=== PATIENT | female | born 1975 | race Asian ===

== ENCOUNTER 2025-04-14 18:20 | Emergency (ER) | payer MEDICAID, OTHER, SELFPAY ==
[2025-04-14 19:06] VITALS: BP 137/78; PULSE 67; RESP 20; TEMP 36.6; O2SAT 100; BMI 29.3
--- NOTE | 2025-04-14 19:10 | ED.GENADULT ---
HPI - General Adult General Chief complaint: Skin/Abscess/Foreign Body Stated complaint: abscess with cellulitis (sent by urgent care) Time Seen by Provider: 04/14/25 22:25 Related Data Previous Rx's ?Medication ?Instructions ?Recorded cephalexin 500 mg capsule 500 mg PO BID #19 caps 04/14/25 doxycycline hyclate 100 mg tablet 100 mg PO BID #19 tabs 04/14/25 ketorolac 10 mg tablet 10 mg PO Q8H PRN pain #10 tabs 04/14/25 oxycodone 5 mg tablet 5 mg PO BID PRN pain #5 tabs 04/14/25 oxycodone 5 mg tablet 5 mg PO BID PRN pain #5 tabs 04/14/25 Allergies Allergy/AdvReac Type Severity Reaction Status Date / Time No Known Allergies Allergy Verified 04/14/25 19:08 [facility] Social History Social History Alcohol intake: current Alcohol intake frequency: holidays/special occasions only Smoked in Last 30 Days: No Use of substances other than those prescribed or required for medical reasons: No Patient : No Physical Exam ED Vital Signs: Vital Signs - 24 hr 04/14/25 19:06 04/14/25 21:52 Temperature 98 F 97.6 F Pulse Rate 67 67 Respiratory Rate 20 18 Blood Pressure 137/78 139/76 Pulse Oximetry 100 99 Oxygen Delivery Method Room Air Room Air BMI result Body Mass Index 29.3 Course Course Course Narrative: Rapid medical examination performed in triage by Lenka Martinez PA-C: Patient is a 49 year old female presenting to the emergency department with a vaginal abscess. Patient states that she was at an urgent care and found to have a vaginal abscess and they recommended she come to the ER. Detailed physical exam and review of systems are deferred to the internal corrosion specialist. Labs ordered. Patient placed back in the waiting room pending room availability and results. Medications Administered Discontinued Medications Generic Name Dose Route Start Last Admin Trade Name Freq PRN Reason Stop Dose Admin Cephalexin HCl 500 mg 04/14/25 22:39 04/14/25 22:51 Cephalexin 500 Mg Capsule PO 04/14/25 22:40 500 mg ONCE ONE Administration Doxycycline Monohydrate 100 mg 04/14/25 22:39 04/14/25 22:51 Doxycycline Monohydrate 100 Mg Capsule PO 04/14/25 22:40 100 mg ONCE ONE Administration Ketorolac Tromethamine 30 mg 04/14/25 22:39 04/14/25 22:51 Ketorolac Tromethamine 30 Mg/Ml Vial IVPUSH 04/14/25 22:40 30 mg ONCE ONE Administration Lidocaine HCl 10 ml 04/14/25 22:39 04/14/25 22:52 Lidocaine Hcl 2 % Mpf 5 Ml Vial INFILTRATI 04/14/25 22:40 10 ml ONCE ONE Administration Medical Decision Making Lab Data 04/14/25 19:31 04/14/25 19:31 Labs: Lab Results 04/14/25 Range/Units 19:31 WBC 8.6 (4.8-10.8) X10*3/uL RBC 4.59 (4.20-5.50) X10*6/uL Hgb 13.6 (12.0-16.0) g/dl Hct 41.0 (37.0-47.0) % MCV 89.3 (80.0-98.0) fL MCH 29.6 (27.0-33.0) pg MCHC 33.2 (31.0-35.0) g/dl RDW 12.3 (11.0-16.0) % Plt Count 291 (160-400) X10*3/uL MPV 9.6 (9.4-12.3) fL Immature Gran % (Auto) 0.2 (0.0-0.4) % Neut % (Auto) 66.7 (45-73) % Lymph % (Auto) 18.9 L (20-40) % Creek % (Auto) 7.1 (2-11) % Eos % (Auto) 6.3 H (0-4) % Baso % (Auto) 0.8 (0-2) % Lymph # (Auto) 1.6 (1.2-4.9) X10*3/uL Creek # (Auto) 0.6 (0.1-1.2) X10*3/uL Eos # (Auto) 0.5 H (0.0-0.4) X10*3/uL Baso # (Auto) 0.1 (0.0-0.2) X10*3/uL Abs Immat Gran (auto) 0.02 (0.00-0.03) X10*3/uL Absolute Neuts (auto) 5.8 (2.0-8.3) x10*3/uL Absolute Nucleated RBC 0.000 (0.0-0.012) X10*3/uL Nucleated RBC % (auto) 0.0 (0.0-0.2) /100WBC ESR 17 (1-20) MM/HR Sodium 140 (135-145) mmol/L Potassium 4.3 (3.3-5.1) mmol/L Chloride 107 (96-108) mmol/L Carbon Dioxide 27 (22-29) mmol/L Anion Gap 10 L (12-20) BUN 13 (9-16) mg/dL Creatinine 0.86 (0.5-1.4) mg/dL Estim Creat Clear Calc 75.4 Estimated GFR > 60 Random Glucose 95 (60-115) mg/dL Calcium 9.4 (8.4-10.2) mg/dL Total Bilirubin 0.2 (0.0-1.0) mg/dL AST 78 H (5-31) U/L ALT 17 (0-31) U/L Alkaline Phosphatase 68 (39-117) U/L C-Reactive Protein 1.18 H (< or = 0.50) mg/dL Total Protein 7.7 (6.5-8.0) g/dL Albumin 4.4 (3.5-5.0) g/dL Discharge Plan Discharge Clinical Impression: Abscess of skin or subcutaneous tissue, Cellulitis Patient Disposition: Home, Self-Care Instructions: Abscess (ED), Incision and Drainage (ED) Additional Instructions: please return MondayApril 16 in the morning for wound check and packing removal. Please follow-up with your primary care physician tomorrow. If you have any worsening or new symptoms, please return to the emergency room or call 911 Prescriptions: New cephalexin 500 mg capsule 500 mg PO BID Qty: 19 0RF ketorolac 10 mg tablet 10 mg PO Q8H PRN (Reason: pain) Qty: 10 0RF Rx Instructions: did not take this medication with ibuprofen, only Tylenol or oxycodone if needed doxycycline hyclate 100 mg tablet 100 mg PO BID Qty: 19 0RF oxycodone 5 mg tablet 5 mg PO BID PRN (Reason: pain) Qty: 5 0RF Rx Instructions: Partial Fill upon patient request. oxycodone 5 mg tablet 5 mg PO BID PRN (Reason: pain) Qty: 5 0RF Rx Instructions: Partial Fill upon patient request. Stand Alone Forms: Work/School Release
[2025-04-14 19:41] LABS: MANUAL DIFF FLAG NO
[2025-04-14 19:42] LABS: Hematocrit 41.0 % (37.0-47.0); Hemoglobin 13.6 g/dl (12.0-16.0); Imm Gran Abs Auto 0.02 X10*3/uL (0.00-0.03); Imm Gran Pct Auto 0.2 % (0.0-0.4); Lymphocytes Absolute Auto 1.6 X10*3/uL (1.2-4.9); Mean Corpuscular HGB Conc 33.2 g/dl (31.0-35.0); Mean Corpuscular Hemoglobin 29.6 pg (27.0-33.0); Mean Corpuscular Volume 89.3 fL (80.0-98.0); NRBC Abs Auto 0.000 X10*3/uL (0.0-0.012); NRBC Pct Auto 0.0 /100WBC (0.0-0.2); Platelet Count 291 X10*3/uL (160-400); Red Blood Count 4.59 X10*6/uL (4.20-5.50); White Blood Count 8.6 X10*3/uL (4.8-10.8)
[2025-04-14 20:00] LABS: Alanine Aminotransferase 17 U/L (0-31); Albumin Level 4.4 g/dL (3.5-5.0); Alkaline Phosphatase 68 U/L (39-117); Anion Gap 10 (12-20); Aspartate Amino Transferase 78 U/L (5-31); Blood Urea Nitrogen 13 mg/dL (9-16); Calcium 9.4 mg/dL (8.4-10.2); Carbon Dioxide 27 mmol/L (22-29); Chloride 107 mmol/L (96-108); Creatinine Clr Calc Pharmacy 75.4; Estimated Glomerular Filt Rate > 60; Potassium 4.3 mmol/L (3.3-5.1); Sodium 140 mmol/L (135-145); Total Protein 7.7 g/dL (6.5-8.0)
[2025-04-14 21:52] VITALS: BP 139/76; PULSE 67; RESP 18; TEMP 36.4; O2SAT 99
--- NOTE | 2025-04-14 22:03 | PC.NURSE ---
pt brought in via triage, pt changed over into hospital gown, IV line placed, call light provided for safety, pending ED provider
[2025-04-14] MEDS: Lidocaine HCl 2 % MPF 5 ML VIAL 10 ML INFILTRATI (22:52)
--- NOTE | 2025-04-14 22:54 | PC.NURSE ---
provider Naveed Joaquin at the bedside performing abscess drainage on pt
--- NOTE | 2025-04-14 23:04 | PC.NURSE ---
procedure complete, pt tolerated procedure moderately well, drainage site packed and dressed by provider Miki
[2025-04-15] MEDS: oxyCODONE HCl Immed Release 5 MG TABLET PO (00:11)
[2025-04-15 00:14] VITALS: BP 139/76; PULSE 67; RESP 18; TEMP 36.4; O2SAT 99
== END 2025-04-15 00:15 | disposition home or self-care (01) ==
LOC: HO.ED 23:51
PROVIDERS: Physician Assistant Medical; Emergency Provider Emergency Medicine
DX: N76.4 Abscess of vulva (principal); N76.0 Acute vaginitis; N76.2 Acute vulvitis
CPT/HCPCS: 36415; 56405; 80053; 85025; 85652; 86140; 96374; 99284; J1885; J2003

== ENCOUNTER 2025-04-16 07:14 | Emergency (ER) | payer MEDICAID, OTHER, SELFPAY ==
[2025-04-16 07:32] VITALS: BP 135/69; PULSE 84; RESP 16; TEMP 36.5; O2SAT 99; BMI 26.0
--- NOTE | 2025-04-16 07:52 | ED_ITS ---
HPI - Wound/Laceration General Chief Complaint: Wound/Laceration Stated Complaint: wound check/ packing removal Time Seen by Provider: 04/16/25 07:43 Source: patient Mode of arrival: ambulatory Limitations: no limitations History of Present Illness ED Provider: Dr. Chirag Royal HPI narrative: 49-year-old female with no significant past medical history who presents emergency department for evaluation of wound check and packing removal for a right groin abscess. Patient was seen in the emergency department on 04/14/2025 for a right groin abscess which was incised, drained and packed. Patient was discharged home with prescriptions for cephalexin 500 mg b.i.d., doxycycline 100 mg b.i.d., oxycodone 5 mg b.i.d. and ketorolac 10 mg Q 8 hours as needed for pain. Patient states that she still is having pain in the groin area. She denied fever or chills. Related Data Previous Rx's ?Medication ?Instructions ?Recorded cephalexin 500 mg capsule 500 mg PO BID #19 caps 04/14 doxycycline hyclate 100 mg tablet 100 mg PO BID #19 ta bs 04/14/25 ketorolac 10 mg tablet 10 mg PO Q8H PRN pain #10 ta bs 04/14/25 oxycodone 5 mg tablet 5 mg PO BID PRN pain #5 tabs 04/14/25 oxycodone 5 mg tablet 5 mg PO BID PRN pain #5 tabs 04/14/25 Allergies Allergy/AdvReac Type Severity Reaction Status Date / Time No Known Allergies Allergy Verified 04/16/25 07:32 [facility] Social History Social History Alcohol intake: current Alcohol intake frequency: holidays/special occasions only Advance Directives: No Advance Directives Information Provided: Yes Physical Exam Vital Signs: Vital Signs: Last Vital Signs Temp 97.7 F 04/16/25 07:32 Pulse 84 04/16/25 07:32 Resp 16 04/16/25 07:32 BP 135/69 04/16/25 07:32 Pulse Ox 99 04/16/25 07:32 O2 Del Method Room Air 04/16/25 07:32 BMI result Body Mass Index 26.0 Vital signs were normal Exam The patient has a right groin gauze dressing covered with Tegaderm. When the Tegaderm and gauze was remove the packing was in place, there was no increased erythema or warmth, there mild tenderness palpation over the area. Packing was removed, there was no purulent material or blood expressed from the wound cavity. Medical Decision Making Medical Decision Making MDM Narrative: 49-year-old female with no significant past medical history who was seen in the emergency department on 04/14/2025 for right groin abscess which was incised, drained and packed with iodoform gauze. The patient has had no symptoms except for pain in the area, she denied fever chills. Exam reveals that the dressing was intact, packing was removed and there was no purulent or bloody drainage from the abscess cavity. No evidence for cellulitis. Differential diagnosis: ?Includes but is not limited to cellulitis, abscess re- formation Course: Packing was removed. Gauze dressing was applied. Patient was advised to use a heating pad on low for 15 minutes 4 to 6 times a day for the next 2-3 days to increase the blood flow to the area and help the process. She was advised to complete her antibiotic course as prescribed and to take her prescribed pain medicines. She was given printed and verbal instructions and discharged home. Differential Diagnosis Differential Diagnoses: The differential diagnosis associated with the presentation includes (See above) Admission/Observation Consideration of admission/observation: Escalation of care including admission/observation considered (No) External Record Review External record reviewed: Other (Previous ED record) Procedures Procedure Narrative Procedure Narrative: Right groin abscess packing removal The Tegaderm and gauze dressing were removed. Packing was in place and this has removed. There was no further purulent or bloody drainage noted. Patient tolerated the procedure well. Discharge Plan Discharge Clinical Impression: Wound check, abscess, Abscess packing removal Patient Disposition: Home, Self-Care Additional Instructions: Cover the wound with gauze and change the gauze dressing if you bleed through the dressing. Watch for signs of increased infection which would be drainage of pus, redness around the wound, fever, chills Use a heating pad on low for 15 minutes 4 to 6 times a day. This increases the blood flow to the area and help the healing process Finish your antibiotics as prescribed. Take your pain medications as prescribed. Follow-up with your doctor in 2 days. Please return to the emergency department if your symptoms get worse or if you develop any symptoms that are concerning to you. Prescriptions: No Action cephalexin 500 mg capsule 500 mg PO BID Qty: 19 0RF ketorolac 10 mg tablet 10 mg PO Q8H PRN (Reason: pain) Qty: 10 0RF Rx Instructions: did not take this medication with ibuprofen, only Tylenol or oxycodone if needed doxycycline hyclate 100 mg tablet 100 mg PO BID Qty: 19 0RF oxycodone 5 mg tablet 5 mg PO BID PRN (Reason: pain) Qty: 5 0RF Rx Instructions: Partial Fill upon patient request. oxycodone 5 mg tablet 5 mg PO BID PRN (Reason: pain) Qty: 5 0RF Rx Instructions: Partial Fill upon patient request. Print Language: Luxem[place]
[2025-04-16 08:23] VITALS: BP 135/69; PULSE 84; RESP 16; TEMP 36.5; O2SAT 99
== END 2025-04-16 08:24 | disposition home or self-care (01) ==
PROVIDERS: Emergency Provider Emergency Medicine Emergency Medical Services
DX: L02.214 Cutaneous abscess of groin (principal); Z48.00 Encounter for change or removal of nonsurgical wound dressing
CPT/HCPCS: 99283